=== PATIENT | female | born 1955 | race Caucasian/White ===

== ENCOUNTER 2020-03-25 09:40 | Inpatient (IN) | payer OTHER ==
[2020-03-25] VITALS (21 sets, daily range): BP systolic 94–189; BP diastolic 49–110
[~2020-03-25] VITALS: Ht 172.7 cm; Wt 104.4 kg
[~2020-03-25 09:40] MED LIST: ASCO100089 PO; CHOL100046 PO; CYAN50003 PO; FAMO40TA8 PO; HYDR-3972 PO; LISI1TAB29 PO; METF-900 PO; SIMV-45 PO; ceFAZolin 2gm in dextrose, iso 50 ML IV ONE; famotidine 20mg tablet PO ONE; ringers solution, lacted 1,000 ML IV SCH; tranexamic acid 650mg tablet PO ONE; vancomycin 1,500 MG in NS 300ml IV soln IV ONE
[2020-03-25] MEDS ORDERED: CETI10CA19 PO (10:24)
[2020-03-25] MEDS ORDERED: ketorolac trometh. 30mg/ml inj. ONE (12:14)
[2020-03-25] MEDS ORDERED: ROPIVAcaine 0.5% (5mg/ml) 30ml vial ONE ×2 (12:14→15:46)
[2020-03-25] MEDS ORDERED: tetracaine 1% (10mg/ml) pres. free inj. ONE (13:07)
[2020-03-25] MEDS ORDERED: MIDAZolam 5mg/5ml vial ONE (13:17)
[2020-03-25] MEDS ORDERED: fentaNYL/PF 50MCG/1 ML 2ML syringe ONE (13:19)
[2020-03-25] MEDS ORDERED: propofol inj 20 ML IV ONE ×5 (13:33→15:46)
[2020-03-25] MEDS ORDERED: ondansetron/PF 4mg/2ml inj IV PRN ×2 (13:55→16:10)
[2020-03-25] MEDS ORDERED: morphine 2 MG/ML inj. syringe IV PRN (13:55)
[2020-03-25] MEDS ORDERED: acetaminophen 1,000mg/100ml IV 100 ML IV PRN (13:55)
[2020-03-25] MEDS ORDERED: ringers solution, lacted 1,000 ML IV SCH (13:55)
[2020-03-25] MEDS ORDERED: meperidine/PF 25mg/ml syringe IV PRN ×3 (13:55)
[2020-03-25] MEDS ORDERED: hydrALAZINE 20mg/ml inj. IV PRN (13:55)
[2020-03-25] MEDS ORDERED: morphine 4 MG/ML inj SYRINge IV PRN (13:55)
[2020-03-25] MEDS ORDERED: ROPIVAcaine 0.2% (10 MG/5 ML) BOLUS INJECTION ADDCANAL PRN (13:55)
[2020-03-25] MEDS ORDERED: labetalol 20mg/4ml (5mg/ml) syringe IV PRN (13:55)
[2020-03-25] MEDS ORDERED: proCHLORperazine 10 MG/2 ml inj IV PRN (13:55)
[2020-03-25] MEDS ORDERED: magnesium hydroxide 30ml (MOM) UD suspension PO PRN (16:10)
[2020-03-25] MEDS ORDERED: diphenhydrAMINE 25mg capsule PO PRN ×2 (16:10)
[2020-03-25] MEDS ORDERED: acetaminophen 325mg tablet PO PRN (16:10)
[2020-03-25] MEDS ORDERED: bisacodyl 10mg suppository rectal RC PRN (16:10)
[2020-03-25] MEDS: potassium cl 20mEq in 1/2 NS 1,000 ML IV SCH ×3 (16:10→20:42)
[2020-03-25] MEDS ORDERED: HYDROcodone/acetaminophen 10/325mg tab PO PRN (16:10)
[2020-03-25] MEDS ORDERED: HYDROmorphone inj. 0.5 MG/0.5 ML DISP.SYRIN IV PRN (16:10)
[2020-03-25] MEDS ORDERED: oxyCODONE IR 5mg (immed. release) tablet PO PRN (16:10)
[2020-03-25] MEDS ORDERED: HYDROmorphone 1 mg/ml syringe IV PRN (16:10)
--- NOTE | 2020-03-25 16:12 | NUR ---
Received from OR via BED, accompanied by Anesthesiologist DR WAYNE and report given by Anesthesiologist. PT AWAKE, DENIES PAIN, LEFT KNEE W/DRSG, KNEE WRAP, ICE PACK CDI. DERMATOME LEVEL L 1-2. Addendum: 03/25/20 at 1656 by Daylin Tierney RN Amended: Links added.
[2020-03-25] MEDS: ROPIVAcaine 0.2%/PF PUMP/bolus 550 ML ADDCANAL SCH (17:05)
--- NOTE | 2020-03-25 17:52 | NUR ---
Report called to receiving nurse. Transferred via BED, 2 BAGS OF Belongings W/CELL PHONE SENT W/PT TO ROOM 360B. RECEIVING RN AT BEDSIDE TO RECEIVE PT, BLL, CALL LIGHT GIVEN, SIDE RAILS UP X 2. Special Issues communicated to receiving nurse. YES. Addendum: 03/25/20 at 1758 by Daylin Tierney RN Amended: Links added.
--- NOTE | 2020-03-25 18:23 | NUR ---
Problems reprioritized. Patient report given, questions answered & plan of care reviewed with Danna VALADEZ.
[2020-03-25] MEDS: acetaminophen 325mg tablet PO SCH (20:00)
[2020-03-25] MEDS ORDERED: vancomycin/NS 1 GM ADD-VANTAGE 250 ML IV SCH (20:00)
[2020-03-25] MEDS ORDERED: sennosides 8.6mg tablet PO SCH (21:00)
[2020-03-25] MEDS ORDERED: atorvastatin 20mg tablet PO SCH (21:00)
[2020-03-25] MEDS ORDERED: metFORMIN 500mg tablet PO SCH (21:00)
[2020-03-25] MEDS: oxyCODONE IR 5mg (immed. release) tablet PO PRN (21:30)
[2020-03-25] MEDS: famotidine 20mg tablet PO SCH (21:31)
[2020-03-26] VITALS: BP 149/88
[2020-03-26] MEDS: ceFAZolin/D5W- 1GM premix 50 ML IV SCH ×2 (00:52→08:03)
[2020-03-26] MEDS: oxyCODONE IR 5mg (immed. release) tablet PO PRN ×2 (02:56→08:11)
[2020-03-26] MEDS: acetaminophen 325mg tablet PO SCH ×2 (02:56→08:08)
--- NOTE | 2020-03-26 03:28 | NUR ---
PT REQUESTED THE REZA CATHETER BE REMOVED THAT IT WAS BOTHERING HER. SO IT WAS REMOVED EARLY WITHOUT INCIDENT. THERE WAS 300 DARK KEVIN URINE IN F/C. PT ALSO VOIDED 250ML DARK YELLOW URINE AT 0300. NO FURTHER COMPLAINTS.
--- NOTE | 2020-03-26 06:17 | NUR ---
REPORT GIVEN TO RORY RAZO.
[2020-03-26 06:18] LABS: BASOPHILS % (AUTO) 0.5 % (0-1); EOSINOPHILS # (AUTO) 0.2 X10'3 (0-0.9); HEMATOCRIT 36.9 % (35.0-45.0); HEMOGLOBIN 12.5 g/dl (12.0-16.0); LYMPHOCYTES # (AUTO) 1.2 X10'3 (1.1-4.8); MEAN CORPUSCULAR HEMOGLOBIN 31.8 PG (27.0-31.0); MEAN CORPUSCULAR HGB CONC 33.9 g/dL (33.0-36.5); MEAN CORPUSCULAR VOLUME 93.7 FL (78-98); MEAN PLATELET VOLUME 7.2 FL (7.4-10.4); MONOCYTES # (AUTO) 0.7 X10'3 (0-0.9); MONOCYTES % (AUTO) 10.2 % (2-12); NEUTROPHILS % (AUTO) 70.3 % (42-75); PLATELET COUNT 195 X10'3 (140-440); RED BLOOD COUNT 3.94 X10'6 (4.20-5.60); RED CELL DISTRIBUTION WIDTH 12.8 % (11.5-14.5); WHITE BLOOD COUNT 7.2 X10'3 (4.5-11.0)
[2020-03-26 06:34] LABS: ANION GAP 5 (8-16); CHLORIDE 102 MMOL/L (99-107); POTASSIUM 3.9 MMOL/L (3.5-5.1); SODIUM 136 MMOL/L (135-145); TOTAL CARBON DIOXIDE 29.5 MMOL/L (24-32)
[2020-03-26 07:00] VITALS: BP 167/99
[2020-03-26] MEDS ORDERED: HYDROchlorothiazide 25mg tablet PO SCH (08:00)
[2020-03-26] MEDS ORDERED: ascorbic acid 500mg tablet PO SCH (08:00)
[2020-03-26] MEDS ORDERED: cyanocobalamin 500mcg tablet PO SCH (08:00)
[2020-03-26] MEDS ORDERED: lisinopril 20mg tablet PO SCH (08:00)
[2020-03-26 08:06] VITALS: BP_SYST 167
[2020-03-26] MEDS: famotidine 20mg tablet PO SCH (08:07)
[2020-03-26] MEDS ORDERED: aspirin 325mg tablet PO SCH (08:30)
--- NOTE | 2020-03-26 09:31 | NUR ---
ORDERED NEW ON Q BALL FOR PT TO DC WITH
[2020-03-26] MEDS: ROPIVAcaine 0.2%/PF PUMP/bolus 550 ML ADDCANAL SCH (11:20)
--- NOTE | 2020-03-26 11:30 | NUR ---
DC INSTRUCTIONS GIVEN, QUESTIONS ANSWERED. ON Q CHANGED. IV REMOVED, CANULA INTACT, NO COMPLICATIONS. ASSISTED WITH DRESSING, GATHERED BELONGINGS. WHEELED DOWN TO PRIVATE VEHICLE IN STABLE CONDITION.
--- NOTE | 2020-03-27 13:24 | NUR ---
CASE MANAGEMENT DISCHARGE FOLLOW UP: Spoke with pt via telephone. Pt reports that she is feeling "good" and is better today than yesterday. States that she was in intense pain last night but since then pain has been tolerable. Denies fever, states dressing is intact. Verbalizes understanding of s/sx requiring further evaluation/emergent assistance. Pt verbalizes understanding of medications. Pt verbalizes compliance with MD discharge instructions, states using IS, ice packs, walker for ambulation. Pt did have questions about D/C instructions as they state she needs to disconnect battery from MATTHEW dressing before showering, states that she can't find a battery, upon inquiry, pt states she looked at an image of a MATTHEW dressing online and her dressing does not look like that. Advised that when she gets in touch to surgeon's office to enquire about this, she currently has a call out to verify upcoming follow up appointment.Pt states no further questions/concerns at this time.
[2020-03-27] MEDS ORDERED: acetaminophen 325mg tablet PO PRN (16:10)
== END 2020-03-26 11:32 | disposition home or self-care (01) | DRG 470 ==
LOC: PAS 09:40 → SUR 3N 16:09
PROVIDERS: ADMIT Orthopaedic Surgery; ATTEND Orthopaedic Surgery
PROC: 8E0YXBZ Computer Assisted Procedure of Lower Extremity (ICD-10-PCS; 2020-03-25)
PROC: 8E0Y0CZ Robotic Assisted Procedure of Lower Extremity, Open Approach (ICD-10-PCS; 2020-03-25)
PROC: 3E0T3BZ Introduction of Anesthetic Agent into Peripheral Nerves and Plexi, Percutaneous Approach (ICD-10-PCS; 2020-03-25)
PROC: 0SRD0J9 Replacement of Left Knee Joint with Synthetic Substitute, Cemented, Open Approach (ICD-10-PCS; principal; 2020-03-25 12:54)
DX: M17.0 Bilateral primary osteoarthritis of knee (principal); M21.062 Valgus deformity, not elsewhere classified, left knee; I10 Essential (primary) hypertension; E11.49 Type 2 diabetes mellitus with other diabetic neurological complication; M70.52 Other bursitis of knee, left knee; E66.9 Obesity, unspecified; Z68.35 Body mass index [BMI] 35.0-35.9, adult; Z88.0 Allergy status to penicillin; Z79.899 Other long term (current) drug therapy
CPT/HCPCS: Z7506; Z7508; 36415; 80051; 82948; 85025; 87081; 87635; 97110; 97116; 97162; 97530; A4215; A6258; A7000; C1713; C1758; C1776; G0378; J0690; J1885; J2250; J2704; J2795; J3010; J3370; J3480; J7040; J7120; Q0163